=== PATIENT | male | born 1995 | race Caucasian/White ===

== ENCOUNTER 2018-05-26 18:20 | Emergency (ER) | payer OTHER ==
[~2018-05-26] VITALS: Ht 177.8 cm; Wt 81.8 kg
[2018-05-26 18:46] VITALS: BP 149/78
== END 2018-05-26 19:11 | disposition home or self-care (01) ==
LOC: ED 19:00
DX: G40.309 Generalized idiopathic epilepsy and epileptic syndromes, not intractable, without status epilepticus (principal)
CPT/HCPCS: 99283

== ENCOUNTER 2019-02-13 19:13 | Emergency (ER) | payer BC, OTHER ==
[~2019-02-13] VITALS: Ht 175.3 cm; Wt 91.0 kg
[2019-02-13 19:26] VITALS: BP 140/81
--- NOTE | 2019-02-13 19:30 | NUR ---
BIB [facility] AFTER SUFFERING FROM SEZIURE LASTING ABOUT 1.5 MINUTES. 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 STATES HE DRINKS PRETTY HEAVLY AND HAS CONTINUED TO DO THE SAME SINCE PREVIOUS SEIZURES. PT WAS POSTICAL FOR [facility] AND NOW IS [id number]. PT DENIES FALLING WHEN HAVING SEIZURE. PT REQUESTING TO LEAVE AND GO. [facility] AGREEABLE WITH PLAN. PT TO BE D/C.
--- NOTE | 2019-02-13 19:43 | NUR ---
Patient/Caregiver given discharge instructions and they have confirmed that they understand the instructions. Patient ambulatory with steady gait.
== END 2019-02-13 19:44 | disposition home or self-care (01) ==
LOC: ED 19:38
DX: G40.409 Other generalized epilepsy and epileptic syndromes, not intractable, without status epilepticus (principal)
CPT/HCPCS: 99283